=== PATIENT | male | born 1975 | race Two or more races ===

== ENCOUNTER 2018-05-16 09:47 | Emergency (ER) | payer BC ==
[2018-05-16 10:27] VITALS: BP 158/90; PULSE 100; TEMP 99.5; BMI 29.0
--- NOTE | 2018-05-16 10:52 | PDOC ---
History of Present Illness - General Chief Complaint: Headache Stated Complaint: CHEST PAIN, HEADACHE Time Seen by Provider: 05/16/18 10:51 History Source: Patient Exam Limitations: No Limitations - History of Present Illness Initial Comments: 05/16/18 11:00 Sister accompanied patient with complaints of fevers, chills, general body aches , sore throat pain and moist nonproductive cough. Onset was 2 days ago it is only taken Tylenol last night. Is progressively worsening. Timing/Duration: reports: increasing Severity: Yes: mild, moderate Associated Symptoms: reports: fever/chills, weakness Past History - Travel Traveled outside of the country in the last 30 days: No Close contact w/someone who was outside of country & ill: No - Past Medical History Allergies/Adverse Reactions: Allergies Allergy/AdvReac Type Severity Reaction Status Date / Time No Known Allergies Allergy Verified 05/16/18 10:22 Home Medications: Ambulatory Orders NK [No Known Home Medication] 05/16/18 COPD: No - Immunization History Immunization Up to Date: Yes - Suicide/Smoking/Psychosocial Hx Smoking History: Never smoked Hx Alcohol Use: Yes Drug/Substance Use Hx: No Review of Systems - Review of Systems Able to Perform ROS?: Yes Is the patient limited Palestinian proficient: Yes Constitutional: Yes: Symptoms Reported, See HPI, Chills, Fever, Loss of Appetite , Malaise HEENTM: Yes: Symptoms Reported, See HPI, Nose Congestion, Throat Pain Respiratory: Yes: Symptoms reported, See HPI, Cough ABD/GI: Yes: See HPI, Nausea, Vomiting : No: Symptoms Reported Musculoskeletal: Yes: Symptoms Reported, See HPI, Muscle Pain Neurological: Yes: Symptoms reported, See HPI, Headache (FRONTAL) All Other Systems: Reviewed and Negative *Physical Exam - Vital Signs Last Vital Signs Temp Pulse Resp BP Pulse Ox 99.5 F 100 H 18 158/90 97 05/16/18 10:22 05/16/18 10:22 05/16/18 10:22 05/16/18 10:22 05/16/18 10:22 - Physical Exam General Appearance: Yes: Nourished, Appropriately Dressed, Apparent Distress, Mild Distress, Moderate Distress HEENT: positive: IRNEE (GLASSY ), TMs Normal (congested but landmarks easily visualized), Tonsillar Erythema, Nasal Congestion, Rhinorrhea. negative: Pharynx Normal Neck: positive: Tender, Supple, Lymphadenopathy (R), Lymphadenopathy (L) Respiratory/Chest: positive: Lungs Clear, Normal Breath Sounds. negative: Wheezing Cardiovascular: positive: Regular Rate Gastrointestinal/Abdominal: positive: Normal Bowel Sounds, Soft. 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 NML intact, Fully Oriented, Alert, Normal Mood/ Affect, Normal Response, Motor Strength 5/5 Moderate Sedation - Procedure Monitoring Vital Signs: Procedure Monitoring Vital Signs Temperature 99.5 F 05/16/18 10:22 Pulse Rate 100 H 05/16/18 10:22 Respiratory Rate 18 05/16/18 10:22 Blood Pressure 158/90 05/16/18 10:22 O2 Sat by Pulse Oximetry (%) 97 05/16/18 10:22 Progress Note - Progress Note Progress Note: Influenza testing negative, we'll treat for viral illness *DC/Admit/Observation/Transfer Diagnosis at time of Disposition: Upper respiratory infection Qualifiers: URI type: unspecified URI Qualified Code(s): J06.9 - Acute upper respiratory infection, unspecified - Discharge Dispostion Disposition: HOME Condition at time of disposition: Stable Decision to Admit order: No - Referrals - Patient Instructions Printed Discharge Instructions: DI for Viral Upper Respiratory Infection -- Adult Additional Instructions: Rest, drink lots of fluids: Teas, water, soups, Pedialyte Saltwater gargles Steamy showers/seem to face break up mucus Old-fashioned treatments help! Avoid contact with others until fevers and cough resolved as this is very contagious Lots of handwashing and good hygiene Continue [id number] medications for symptomatic relief Tylenol or Motrin for fever and pain Followup with private physician in one to 2 days as needed or if worsening Return to emergency department for worsened symptoms, fevers, dehydration To not participate in any activity, work, or school until fevers and cough are gone for at least one day - Post Discharge Activity Forms/Work/School Notes: Back to Work
[2018-05-16] MEDS ORDERED: IBUPROFEN 600 MG TABLET (FP) PO ONE ×2 (10:59→11:01)
== END 2018-05-16 12:20 | disposition home or self-care (01) ==
LOC: JERFT 09:47
DX: J06.9 Acute upper respiratory infection, unspecified (principal)
CPT/HCPCS: 87804; 99281-25

== ENCOUNTER 2018-10-04 00:31 | Emergency (ER) | payer BC ==
--- NOTE | 2018-10-04 01:17 | PDOC ---
History of Present Illness <Domenica Cross - Last Filed: 10/04/18 04:06> - General History Source: Patient, Family Exam Limitations: Language Barrier <Celeste Garces - Last Filed: 10/04/18 04:08> - General Stated Complaint: WEAKNESS Time Seen by Provider: 10/04/18 00:38 - History of Present Illness Initial Comments: 10/04/18 01:14 Pt is a 42yo M with no significant PMH presenting to ED with complaints of shaking and chest pain. Pt states that he was in bed and he got up when he started feeling his body shaking <1m and started to have chest pain on the L side. He has not had this pain before. Pain is left sided, feels like a pressure , does not radiate, associated with SOB. Pt was given 81mg ASAx4 by EMS. He states he is feeling a bit better but still has the pressure. PMD: across the street PMH: none PSH: none Allergies: nkda Social: 10/04/18 01:51 (Celeste Garces) Past History <Domenica Cross - Last Filed: 10/04/18 04:06> - Past Medical History COPD: No - Immunization History Immunization Up to Date: Yes - Suicide/Smoking/Psychosocial Hx Smoking History: Never smoked Hx Alcohol Use: Yes Drug/Substance Use Hx: No <Celeste Garces - Last Filed: 10/04/18 04:08> - Past Medical History Allergies/Adverse Reactions: Allergies Allergy/AdvReac Type Severity Reaction Status Date / Time No Known Allergies Allergy Verified 05/16/18 10:22 Home Medications: Ambulatory Orders NK [No Known Home Medication] 05/16/18 - Vital Signs Last Vital Signs Temp Pulse Resp BP Pulse Ox 98.3 F 100 H 25 H 148/96 98 10/04/18 00:45 10/04/18 00:45 10/04/18 00:45 10/04/18 00:45 10/04/18 00:45 ED Treatment Course - LABORATORY CBC & Chemistry Diagram: 10/04/18 02:02 10/04/18 02:02 <Domenica Corss - Last Filed: 10/04/18 04:06> - LABORATORY CBC & Chemistry Diagram: 10/04/18 02:02 10/04/18 02:02 <Celeste Garces - Last Filed: 10/04/18 04:08> - ADDITIONAL ORDERS Additional order review: Laboratory Results 10/04/18 10/04/18 10/04/18 02:02 02:02 02:02 D-Dimer < 215 Sodium 139 Potassium 3.5 Chloride 106 Carbon Dioxide 27 Anion Gap 6 L BUN 12 Creatinine 0.8 Creat Clearance w eGFR 105.01 Random Glucose 101 Calcium 8.6 Magnesium 2.1 Total Bilirubin 0.5 AST 14 L ALT 28 Alkaline Phosphatase 95 Creatine Kinase 223 Troponin I < 0.02 Total Protein 6.7 Albumin 3.6 Urine Color Yellow Urine Appearance Clear Urine pH 7.0 Ur Specific [place] 1.009 L Urine Protein Negative Urine Glucose (UA) Negative Urine Ketones 1+ H Urine Blood Negative Urine Nitrite Negative Urine Bilirubin Negative Urine Urobilinogen 0.2 Ur Leukocyte Esterase Negative 10/04/18 02:02 RBC 4.90 MCV 87.0 MCHC 33.3 RDW 12.4 MPV 9.2 Neutrophils % 68.8 Lymphocytes % 21.0 Monocytes % 9.6 Eosinophils % 0.3 Basophils % 0.3 - RADIOLOGY Radiology Studies Ordered: Category Date Time Status CHEST PA & LAT [RAD] Stat Radiology 10/04/18 01:13 Taken - Medications Given in the ED: ED Medications Discontinued Medications Generic Name Dose Route Start Last Admin Trade Name Portillo PRN Reason Stop Dose Admin Al Hydroxide/Mg Hydroxide 30 ml 10/04/18 01:28 10/04/18 02:27 Mylanta Oral Suspension - PO 10/04/18 01:29 30 ml ONCE ONE Administration Famotidine/Sodium Chloride 20 mg in 50 mls @ 100 mls/hr 10/04/18 01:28 02:27 Pepcid 20 Mg Premixed Ivpb - IVPB 10/04/18 01:57 100 mls/hr ONCE ONE Administration Lactulose 20 gm 10/04/18 01:29 10/04/18 02:27 Cephulac (Oral Use) PO 10/04/18 01:30 20 gm ONCE ONE Administration Polyethylene Glycol 17 gm 10/04/18 01:29 10/04/18 02:28 Miralax (For Daily Use) - PO 10/04/18 01:30 17 gm ONCE ONE Administration Sodium Chloride 1,000 ml 10/04/18 03:31 10/04/18 03:48 Normal Saline - IV 10/04/18 03:32 1,000 ml ONCE ONE Administration *DC/Admit/Observation/Transfer - Discharge Dispostion Decision to Admit order: No <Domenica Cross - Last Filed: 10/04/18 04:06> <Celeste Garces - Last Filed: 10/04/18 04:08> Diagnosis at time of Disposition: Gas pain - Discharge Dispostion Disposition: HOME Condition at time of disposition: Improved - Patient Instructions Printed Discharge Instructions: DI for Dyspepsia
[2018-10-04] MEDS ORDERED: MAG HYDROX/AL HYDROX/SIMETH 30 ML UNIT-DOSE CUP PO ONE (01:28)
[2018-10-04] MEDS ORDERED: FAMOTIDINE 20 MG/50 ML IVPB 20 MG/50 ML MG IVPB ONE ×2 (01:28→02:10)
[2018-10-04] MEDS ORDERED: POLYETHYLENE GLYCOL 3350 119 GM BTL PO ONE (01:29)
[2018-10-04] MEDS ORDERED: LACTULOSE 20 GM/30 ML UDC (FOR ORAL USE ONLY) PO ONE (01:29)
[2018-10-04 01:36] VITALS: BMI 32.4
[2018-10-04] MEDS ORDERED: LACTULOSE 20 GM/30 ML UDC (FOR ORAL USE ONLY) ONE (02:10)
[2018-10-04] MEDS ORDERED: MAG HYDROX/AL HYDROX/SIMETH 30 ML UNIT-DOSE CUP ONE (02:10)
--- NOTE | 2018-10-04 02:39 | PDOC ---
Documentation entered by Tracey Singleton SCRIBE, acting as scribe for Domenica Cross MD. Domenica Cross MD: This documentation has been prepared by the Areli morrison Nirvannie, SCRIBE, under my direction and personally reviewed by me in its entirety. I confirm that the documentation accurately reflects all work, treatment, procedures, and medical decision making performed by me. Attending Attestation - Resident Resident Name: Celeste Garces - ED Attending Attestation I have performed the following: I have examined & evaluated the patient, The case was reviewed & discussed with the resident, I agree w/resident's findings & plan - HPI HPI: 10/04/18 01:50 The patient is a 42 year old male, with no significant past medical history, who presents to the emergency department s/p episode of full body shaking and left sided chest pain with associated shortness of breath. Patient endorses an associated constipation for a week. Allergies: NKDA - Physicial Exam PE: 10/04/18 02:08 GENERAL: Awake, alert, and fully oriented, in no acute distress HEAD: No signs of trauma NECK: Normal ROM, supple, no lymphadenopathy, JVD, or masses LUNGS: Breath sounds equal, clear to auscultation bilaterally. No wheezes, and no crackles HEART: Regular rate and rhythm, normal S1 and S2, no murmurs, rubs or gallops ABDOMEN: +Hyperactive bowel sounds. Soft, nontender. No guarding, no rebound. No masses EXTREMITIES: Normal range of motion, no edema. No clubbing or cyanosis. No cords, erythema, or tenderness NEUROLOGICAL: Cranial nerves II through XII grossly intact. Normal speech SKIN: Warm, Dry, normal turgor, no rashes or lesions noted. - Medical Decision Making 10/04/18 03:32 CT head is normal. CXR clear Labs normal; only ketones in the urine. Pt will be hydrated. 10/04/18 03:33 Patient Name: MELINA TOUSSAINT THIS IS A PRELIMINARY REPORT FROM [facility] DATE OF SERVICE: 2018-10-04 03:08:46 IMAGES: 142 EXAM: CT HEAD CT WITHOUT CONTRAST HISTORY: Headache COMPARISON: None. FINDINGS: Brain parenchyma is normal in attenuation with no mass or hematoma. There is no midline shift. Shane and white matter differentiation is normal. Ventricles are normal. Sulci and extra-axial CSF spaces are normal. Intracranial vascular structures are normal in attenuation. There is no calvarial fracture. Paranasal sinuses are normally aerated. IMPRESSION: Normal head 10/04/18 05:59 Lans normal; pt feeling better; he will be discharged.
[2018-10-04 02:55] LABS: BASO % 0.3 % (0-2.0); EOS % 0.3 % (0-4.5); HEMATOCRIT 42.6 % (35.4-49); HEMOGLOBIN 14.2 GM/dL (11.7-16.9); MCH 28.9 pg (25.7-33.7); MCHC 33.3 g/dl (32.0-35.9); MEAN PLT VOLUME 9.2 fl (7.5-11.1); MONO % 9.6 % (3.8-10.2); NEUT % 68.8 % (42.8-82.8); PLATELET COUNT 221 K/MM3 (134-434); RDW 12.4 % (11.9-15.9); URINE APPEARANCE CLEAR; URINE BILIRUBIN NEGATIVE (NEGATIVE); URINE COLOR YELLOW; URINE GLUCOSE (UA) NEGATIVE (NEGATIVE); URINE KETONE 1+ (NEGATIVE); URINE LEUK ESTERASE NEGATIVE (NEGATIVE); URINE NITRITE NEGATIVE (NEGATIVE); URINE PROTEIN NEGATIVE (NEGATIVE); URINE UROBILINOGEN 0.2 mg/dL (0.2-1.0); WHITE BLOOD COUNT 8.2 K/mm3 (4.0-10.0)
[2018-10-04 03:22] LABS: ALBUMIN 3.6 g/dl (3.4-5.0); ALK PHOS 95 U/L (45-117); ANION GAP 6 MMOL/L (8-16); BILIRUBIN,TOTAL 0.5 mg/dL (0.2-1); BLOOD UREA NITROGEN 12 mg/dL (7-18); CALCIUM 8.6 mg/dL (8.5-10.1); CHLORIDE 106 mmol/L (98-107); CO2 27 mmol/L (21-32); CREATININE 0.8 mg/dL (0.55-1.3); GLUCOSE,RANDOM 101 mg/dL (74-106); MAGNESIUM 2.1 mg/dL (1.8-2.4); POTASSIUM 3.5 mmol/L (3.5-5.1); SGOT/AST 14 U/L (15-37); SGPT/ALT 28 U/L (13-61); SODIUM 139 mmol/L (136-145); TOT PROT 6.7 g/dl (6.4-8.2)
[2018-10-04] MEDS ORDERED: SODIUM CHLORIDE 0.9% 500 ML INFUS.BAG IV ONE (03:31)
[2018-10-04 04:18] VITALS: BP 136/90; PULSE 88; TEMP 98.5
--- NOTE | 2018-10-04 15:06 | EKG ---
Test Reason : Blood Pressure : / mmHG Vent. Rate : 104 BPM Atrial Rate : 104 BPM P-R Int : 148 ms QRS Dur : 078 ms QT Int : 350 ms P-R-T Axes : 045 007 021 degrees QTc Int : 460 ms SINUS TACHYCARDIA OTHERWISE NORMAL ECG NO PREVIOUS ECGS AVAILABLE Confirmed by DAVIN JIMENEZ MD ([id number]) on 10/04/2018 3:06:33 PM Referred By: Confirmed By:DAVIN JIMENEZ MD
== END 2018-10-04 04:18 | disposition home or self-care (01) ==
LOC: JER 00:31
PROC: 3E033GC Introduction of Other Therapeutic Substance into Peripheral Vein, Percutaneous Approach (ICD-10-PCS; principal; 2018-10-04)
DX: K30 Functional dyspepsia (principal); R14.1 Gas pain
CPT/HCPCS: 36415; 70450-TC; 71046-TC-FY; 80053; 81003; 82550; 82553; 83735; 84484; 85025; 85379; 93005; 93010; 99282-25

== ENCOUNTER 2021-09-13 18:07 | Emergency (ER) | payer BC ==
[2021-09-13 18:16] VITALS: TEMP 97.4; BMI 34.9
[2021-09-13] MEDS ORDERED: LORazepam 2 MG/ML SDV VIAL IVPUSH ONE (19:19)
[2021-09-13 19:26] LABS: BASO % 0.5 % (0-2.0); EOS % 1.7 % (0-4.5); HEMATOCRIT 45.2 % (35.4-49); HEMOGLOBIN 15.2 GM/dL (11.7-16.9); LYMPH % 32.3 % (8-40); MCH 28.8 pg (25.7-33.7); MCHC 33.7 g/dl (32.0-35.9); MEAN CELL VOLUME 85.4 fl (80-96); MEAN PLT VOLUME 9.2 fl (7.5-11.1); MONO % 7.7 % (3.8-10.2); NEUT % 57.8 % (42.8-82.8); PLATELET COUNT 246 10^3/uL (134-434); RBC 5.29 M/mm3 (4.00-5.60); RDW 13.4 % (11.9-15.9); WHITE BLOOD COUNT 6.8 K/mm3 (4.0-10.0)
[2021-09-13 19:58] LABS: PH,URINE 6.5 (5.0-8.0); URINE APPEARANCE CLEAR; URINE BILIRUBIN NEGATIVE (NEGATIVE); URINE COLOR YELLOW; URINE GLUCOSE (UA) NEGATIVE (NEGATIVE); URINE KETONE NEGATIVE (NEGATIVE); URINE LEUK ESTERASE NEGATIVE (NEGATIVE); URINE NITRITE NEGATIVE (NEGATIVE); URINE PROTEIN NEGATIVE (NEGATIVE); URINE UROBILINOGEN 0.2 mg/dL (0.2-1.0)
[2021-09-13 20:13] LABS: ALBUMIN 3.7 g/dl (3.4-5.0); ALK PHOS 144 U/L (45-117); ANION GAP 5 MMOL/L (8-16); BLOOD UREA NITROGEN 16.9 mg/dL (7-18); CALCIUM 8.8 mg/dL (8.5-10.1); CHLORIDE 101 mmol/L (98-107); CO2 25 mmol/L (21-32); CREATININE 1.1 mg/dL (0.55-1.3); GLUCOSE,RANDOM 178 mg/dL (74-106); SGOT/AST 178 U/L (15-37); SODIUM 131 mmol/L (136-145); TOT PROT 8.4 g/dl (6.4-8.2)
[2021-09-13 20:18] LABS: BILIRUBIN,TOTAL < 0.1 mg/dL (0.2-1)
[2021-09-13 20:32] LABS: COCAINE, UR NEGATIVE (NEGATIVE); METHADONE, UR NEGATIVE (NEGATIVE); OPIATES, URI NEGATIVE (NEGATIVE); PHENCYCLIDINE,URINE NEGATIVE (NEGATIVE); URINE BARBITURATES NEGATIVE (NEGATIVE); URINE BENZODIAZEPINES NEGATIVE (NEGATIVE)
[2021-09-13 20:44] LABS: URINE AMPHETAMINES NEGATIVE (NEGATIVE)
[2021-09-13 21:42] VITALS: PULSE 100
[2021-09-13 21:52] LABS: CALCIUM 8.8 mg/dL (8.5-10.1)
[2021-09-13 21:53] LABS: ALBUMIN 3.5 g/dl (3.4-5.0); BLOOD UREA NITROGEN 12.9 mg/dL (7-18)
[2021-09-13 21:57] LABS: TOT PROT 6.9 g/dl (6.4-8.2)
[2021-09-13 21:59] LABS: BILIRUBIN,TOTAL 0.5 mg/dL (0.2-1)
[2021-09-13 23:21] VITALS: BP 143/96
== END 2021-09-13 23:29 | disposition home or self-care (01) ==
LOC: JER 18:07
PROC: 3E033GC Introduction of Other Therapeutic Substance into Peripheral Vein, Percutaneous Approach (ICD-10-PCS; principal; 2021-09-13)
DX: F19.90 Other psychoactive substance use, unspecified, uncomplicated (principal); I10 Essential (primary) hypertension
CPT/HCPCS: 36415; 71045-TC-FY; 80053; 80307; 81003; 84443; 84484; 85025; 93005; 93010; 99285-25

== ENCOUNTER 2022-08-30 05:32 | Day surgery (SDC) | payer BC ==
[2022-08-29 08:50] VITALS: BMI 33.3
[2022-08-30 10:41] VITALS: TEMP 97.3
[2022-08-30 11:57] VITALS: BP 144/87; PULSE 74; RESP 16
== END 2022-08-30 11:10 | disposition home or self-care (01) ==
LOC: JASU-ENDO 05:32
PROVIDERS: ATTEND Internal Medicine Gastroenterology
PROC: 0DJD8ZZ Inspection of Lower Intestinal Tract, Via Natural or Artificial Opening Endoscopic (ICD-10-PCS; principal; 2022-08-30 10:00)
DX: Z12.11 Encounter for screening for malignant neoplasm of colon (principal); I10 Essential (primary) hypertension